=== PATIENT | female | born 2000 | race Caucasian/White ===

== ENCOUNTER 2020-03-31 21:48 | Emergency (ER) | payer MEDICAID ==
[~2020-03-31] VITALS: Ht 165.1 cm; Wt 61.2 kg
[2020-03-31 21:55] VITALS: BP 143/89
[2020-03-31] MEDS ORDERED: DIPH28.33 TOP (22:10)
== END 2020-03-31 22:18 | disposition home or self-care (01) ==
LOC: ER 21:49
DX: O26.892 Other specified pregnancy related conditions, second trimester (principal); S90.861A Insect bite (nonvenomous), right foot, initial encounter; Z79.899 Other long term (current) drug therapy; Z3A.16 16 weeks gestation of pregnancy; W57.XXXA Bitten or stung by nonvenomous insect and other nonvenomous arthropods, initial encounter; Y93.89 Activity, other specified; Y92.89 Other specified places as the place of occurrence of the external cause; Y99.8 Other external cause status
CPT/HCPCS: 99282